=== PATIENT | male | born 1965 | race Two or more races ===

== ENCOUNTER 2025-04-04 06:00 | Day surgery (SDC) | payer OTHER ==
[2025-04-05] MEDS ORDERED: DIPHENHYDRAMINE HCL 50 MG/ML VIAL 1ML IV ONE (13:45)
[2025-04-05] MEDS ORDERED: ONDANSETRON HCL 2 MG/ML VIAL IV ONE (13:45)
[2025-04-05] MEDS ORDERED: MIDAZOLAM HCL 2 MG/2 ML VIAL IV ONE (13:45)
[2025-04-05] MEDS ORDERED: fentaNYL CITRATE 50 MCG/ML AMPUL IV PUSH ONE (13:45)
[2025-04-13] MEDS ORDERED: ATORVASTATIN (08:48)
[2025-04-13] MEDS ORDERED: ADULT LOW DOSE81 M1 (08:49)
== END 2025-04-05 15:10 | disposition home or self-care (01) ==
LOC: AMB-ENDOS 06:00
PROVIDERS: ATTEND Colon & Rectal Surgery
DX: C20 Malignant neoplasm of rectum (principal); D12.5 Benign neoplasm of sigmoid colon